=== PATIENT | female | born 1995 | race Two or more races ===

== ENCOUNTER 2017-10-15 09:45 | Emergency (ER) | payer OTHER ==
[~2017-10-15] VITALS: Ht 152.4 cm; Wt 63.5 kg
== END 2017-10-15 13:28 | disposition home or self-care (01) ==
LOC: ER 09:45
DX: J06.9 Acute upper respiratory infection, unspecified (principal)

== ENCOUNTER 2018-04-06 11:36 | Emergency (ER) | payer OTHER ==
[~2018-04-06] VITALS: Ht 152.4 cm; Wt 59.0 kg
== END 2018-04-06 13:40 | disposition home or self-care (01) ==
LOC: ER 11:36
DX: S80.02XA Contusion of left knee, initial encounter (principal); S90.02XA Contusion of left ankle, initial encounter; W18.39XA Other fall on same level, initial encounter; Y93.89 Activity, other specified; Y92.488 Other paved roadways as the place of occurrence of the external cause; Y99.8 Other external cause status

== ENCOUNTER 2018-10-14 12:38 | Emergency (ER) | payer OTHER ==
[~2018-10-14] VITALS: Ht 152.4 cm; Wt 63.5 kg
[2018-10-14] MEDS ORDERED: ZITHROMAX500 MG PO (16:02)
[2018-10-14] MEDS ORDERED: TUSSI PRES-B L480 ML PO (16:02)
== END 2018-10-14 16:04 | disposition home or self-care (01) ==
LOC: ER 12:38
DX: B34.9 Viral infection, unspecified (principal)

== ENCOUNTER 2019-01-04 16:50 | Emergency (ER) | payer OTHER ==
[~2019-01-04] VITALS: Ht 152.4 cm; Wt 54.4 kg
[~2019-01-04 16:50] MED LIST: TUSSI PRES-B L480 ML PO; ZITHROMAX500 MG PO
== END 2019-01-04 21:21 | disposition home or self-care (01) ==
LOC: ER 16:50
DX: N30.80 Other cystitis without hematuria (principal)

== ENCOUNTER 2021-01-31 02:18 | Emergency (ER) | payer OTHER ==
[~2021-01-31] VITALS: Ht 152.4 cm; Wt 68.0 kg
== END 2021-01-31 04:11 | disposition home or self-care (01) ==
LOC: ER 02:18
DX: R07.89 Other chest pain (principal)

== ENCOUNTER 2021-03-09 20:42 | Emergency (ER) | payer OTHER ==
[~2021-03-09] VITALS: Ht 152.4 cm; Wt 68.0 kg
== END 2021-03-09 23:29 | disposition home or self-care (01) ==
LOC: ER 20:42
DX: J06.9 Acute upper respiratory infection, unspecified (principal); Z11.52 Encounter for screening for COVID-19

== ENCOUNTER 2022-02-01 07:27 | Emergency (ER) | payer OTHER ==
[~2022-02-01] VITALS: Ht 149.9 cm; Wt 61.2 kg
== END 2022-02-01 12:07 | disposition home or self-care (01) ==
LOC: ER 07:27
DX: J06.9 Acute upper respiratory infection, unspecified (principal); Z20.828 Contact with and (suspected) exposure to other viral communicable diseases

== ENCOUNTER 2022-02-23 15:25 | Emergency (ER) | payer OTHER ==
[~2022-02-23] VITALS: Ht 149.9 cm; Wt 61.2 kg
== END 2022-02-23 17:40 | disposition home or self-care (01) ==
LOC: ER 15:25
DX: J06.9 Acute upper respiratory infection, unspecified (principal); Z20.822 Contact with and (suspected) exposure to COVID-19

== ENCOUNTER 2022-12-27 17:55 | Emergency (ER) | payer OTHER ==
[~2022-12-27] VITALS: Ht 149.9 cm; Wt 77.1 kg
[2022-12-27 19:23] LABS: HEMATOCRIT 39.4 % (36.0-45.00); HEMOGLOBIN 13.6 g/dL (12.0-15.00); MEAN CELL VOLUME 84.5 fL (80.00-100.00); MEAN CORPUSCULAR HEMOGLOBIN 29.2 pg (27.00-32.0); MEAN CORPUSCULAR HGB CONC 34.6 g/dl (32.0-36.0); PLATELET COUNT 219 K/uL (150-450); RED BLOOD COUNT 4.66 M/uL (4.00-6.00); RED CELL DISTRIBUTION WIDTH 12.9 % (11.5-14.5)
== END 2022-12-27 21:04 | disposition home or self-care (01) ==
LOC: ER 17:55
PROVIDERS: General Practice
DX: R53.81 Other malaise (principal); R05.9 Cough, unspecified; Z20.822 Contact with and (suspected) exposure to COVID-19

== ENCOUNTER 2023-04-03 18:06 | Emergency (ER) | payer OTHER ==
[~2023-04-03] VITALS: Ht 152.4 cm; Wt 79.6 kg
[~2023-04-03 18:06] MED LIST changes: +ALBUTEROL2.5 MG/3 M IH; +AZITHROMYCIN500 MG PO; +FLOVENT HFA12 GM
[2023-04-03] MEDS ORDERED: FOLIC ACID20 MG PO (18:46)
[2023-04-03 22:16] LABS: HEMATOCRIT 38.2 % (36.0-45.00); HEMOGLOBIN 13.5 g/dL (12.0-15.00); MEAN CELL VOLUME 86.5 fL (80.00-100.00); MEAN CORPUSCULAR HEMOGLOBIN 30.5 pg (27.00-32.0); MEAN CORPUSCULAR HGB CONC 35.2 g/dl (32.0-36.0); PLATELET COUNT 209 K/uL (150-450); RED BLOOD COUNT 4.42 M/uL (4.00-6.00); RED CELL DISTRIBUTION WIDTH 13.4 % (11.5-14.5)
[2023-04-03 22:18] LABS: URINE APPEARANCE Turbid; URINE BILIRRUBIN Small (NEGATIVE); URINE BLOOD Large; URINE COLOR Red; URINE GLUCOSE Negative (NEGATIVE); URINE LEUKOCYTE Small; URINE NITRATE Negative
[2023-04-03 22:21] LABS: URINE BACTERIA 3803.8 uL (0.0-1933); URINE EPITHELIAL CELLS 69.1 uL (0.0-38.8); URINE WBC 73.5 uL (0.0-23.2)
[2023-04-03 22:33] LABS: URINE PROTEIN 100 (NEGATIVE); URINE RBC > 10558.9 uL (0.0-20.8)
[2023-04-03 22:34] LABS: URINE MUCUS MODERATE
[2023-04-03 23:03] LABS: CALCIUM 9.3 mg/dL (8.5-10.1); CREATININE SERUM 0.71 mg/dL (0.55-1.02); GFR 98.75; POTASSIUM 3.47 mEq/L (3.5-5.1)
== END 2023-04-04 02:19 | disposition home or self-care (01) ==
LOC: ER 18:07
PROVIDERS: Emergency Medicine
DX: O20.9 Hemorrhage in early pregnancy, unspecified (principal); Z3A.01 Less than 8 weeks gestation of pregnancy; Z87.09 Personal history of other diseases of the respiratory system

== ENCOUNTER 2023-09-11 11:40 | Outpatient (CLI) | payer OTHER ==
[~2023-09-11 11:40] MED LIST changes: +CLARITIN10 M1; +FOLIC ACID20 MG PO; +ONDANSETRON ODT8 MG PO; +PEPCID AC20 MG PO
[2023-09-11] MEDS ORDERED: RINGERS SOLUTION,LACTATED 1,000 ML IV SCH (12:45)
[2023-09-11 12:59] LABS: PH,URINE 6.5 (5.0-8.0); URINE BILIRRUBIN Negative (NEGATIVE); URINE BLOOD Negative; URINE COLOR Yellow; URINE GLUCOSE Negative (NEGATIVE); URINE LEUKOCYTE Moderate; URINE NITRATE Negative; URINE PROTEIN Negative (NEGATIVE); URINE UROBILINOGEN 0.2 E.U./dl
[2023-09-11 13:00] LABS: URINE BACTERIA 3356.5 uL (0.0-1933); URINE EPITHELIAL CELLS 67.5 uL (0.0-38.8); URINE RBC 4.1 uL (0.0-20.8); URINE WBC 117.6 uL (0.0-23.2)
[2023-09-11 13:06] LABS: HEMATOCRIT 31.9 % (36.0-45.00); HEMOGLOBIN 11.1 g/dL (12.0-15.00); MEAN CORPUSCULAR HEMOGLOBIN 29.9 pg (27.00-32.0); MEAN CORPUSCULAR HGB CONC 34.8 g/dl (32.0-36.0); PLATELET COUNT 183 K/uL (150-450); RED CELL DISTRIBUTION WIDTH 14.2 % (11.5-14.5); URINE APPEARANCE CLEAR
[2023-09-11] MEDS ORDERED: hydrOXYzine PAMOATE 25 MG CAPSULE PO SCH (17:00)
== END 2023-09-12 10:09 | disposition home or self-care (01) ==
LOC: OBS/DEL 11:40
PROVIDERS: ATTEND Obstetrics & Gynecology
DX: O26.893 Other specified pregnancy related conditions, third trimester (principal); Z3A.29 29 weeks gestation of pregnancy

== ENCOUNTER → 2023-10-25 10:01 | Outpatient (CLI) | payer OTHER | END | disposition home or self-care (01) | LOC: NST 10:01 | PROVIDERS: ATTEND Obstetrics & Gynecology | DX: Z34.83 Encounter for supervision of other normal pregnancy, third trimester (principal) ==

== ENCOUNTER 2023-11-04 04:48 | Inpatient (IN) | payer OTHER ==
[~2023-11-04] VITALS: Ht 152.4 cm; Wt 2.7 kg
[2023-11-04] MEDS ORDERED: PRENATAL TABLE1 EAC1 PO (05:12)
[2023-11-04] MEDS ORDERED: RINGERS SOLUTION,LACTATED 1,000 ML IV SCH (05:15)
[2023-11-04 06:28] LABS: HEMATOCRIT 34.3 % (36.0-45.00); HEMOGLOBIN 11.6 g/dL (12.0-15.00); MEAN CELL VOLUME 84.9 fL (80.00-100.00); MEAN CORPUSCULAR HEMOGLOBIN 28.8 pg (27.00-32.0); PLATELET COUNT 190 K/uL (150-450); RED BLOOD COUNT 4.03 M/uL (4.00-6.00); RED CELL DISTRIBUTION WIDTH 16.3 % (11.5-14.5)
[2023-11-04 06:39] LABS: INR < 0.93; PARTIAL THROMBOPLASTIN TIME 25.3 SECONDS (22.0-34.0); PROTHROMBIN TIME 10.2 SECONDS (9.0-11.5)
[2023-11-04 06:42] LABS: ALBUMIN 2.7 gm/dL (3.4-5.0); BILIRUBIN TOTAL 0.22 mg/dL (0.3-1.2); CALCIUM 8.6 mg/dL (8.5-10.1); CREATININE SERUM 0.45 mg/dL (0.55-1.02); GFR 167.13; GLOBULINA 3.3 G/DL (2.4-3.5); POTASSIUM 3.97 mEq/L (3.5-5.1)
[2023-11-04] MEDS ORDERED: OXYTOCIN 1,000 ML IV ONE (08:00)
[2023-11-04] MEDS ORDERED: OXYTOCIN 20 UNITS/500ML RL PIGGYBAG IV ONE (08:04)
[2023-11-04] MEDS ORDERED: MORPHINE SULFATE 4 MG/ML VIAL IV STA (12:15)
[2023-11-04] MEDS ORDERED: MISOPROSTOL 100 MCG TABLET VAG SCH (12:45)
[2023-11-04] MEDS ORDERED: MISOPROSTOL 100 MCG TABLET PO NR (13:51)
[2023-11-04] MEDS ORDERED: OXYTOCIN 10 UNITS/ML VIAL ONE (16:06)
[2023-11-04] MEDS ORDERED: ERYTHROMYCIN BASE 1 GM TUBE OP ONE (16:06)
[2023-11-04] MEDS ORDERED: CEFAZOLIN SODIUM 1,000 MG VIAL ONE (16:16)
[2023-11-04] MEDS ORDERED: CITRIC ACID/SODIUM CITRATE 30 ML BLIST.PACK PO SCH (16:45)
[2023-11-04] MEDS ORDERED: CEFAZOLIN SODIUM 1,000 MG VIAL IV SCH (16:45)
[2023-11-04] MEDS ORDERED: MEPERIDINE HCL/PF 50 MG/ML VIAL IM PRN (18:00)
[2023-11-04] MEDS ORDERED: OXYTOCIN 1,000 ML IV SCH (18:00)
[2023-11-04] MEDS ORDERED: IBUprofen 400 MG TABLET PO PRN (18:00)
[2023-11-05] MEDS ORDERED: OXYTOCIN 10 UNITS/ML VIAL ONE (00:30)
[2023-11-05] MEDS ORDERED: OxyCODONE HCL/APAP UD (PERCOCET) PO PRN (08:30)
[2023-11-05 11:09] LABS: HEMATOCRIT 31.6 % (36.0-45.00); HEMOGLOBIN 10.9 g/dL (12.0-15.00); MEAN CELL VOLUME 83.9 fL (80.00-100.00); MEAN CORPUSCULAR HEMOGLOBIN 28.9 pg (27.00-32.0); MEAN CORPUSCULAR HGB CONC 34.5 g/dl (32.0-36.0); PLATELET COUNT 158 K/uL (150-450); RED BLOOD COUNT 3.76 M/uL (4.00-6.00); RED CELL DISTRIBUTION WIDTH 16.7 % (11.5-14.5)
== END 2023-11-07 11:27 | disposition home or self-care (01) | DRG 786 ==
LOC: LDR 04:48 → OB/GYN 04:48 → LDR 05:04 → O/R 16:50 → OB/GYN 19:54
PROVIDERS: Obstetrics & Gynecology; ADMIT Obstetrics & Gynecology Maternal & Fetal Medicine; ATTEND Obstetrics & Gynecology Maternal & Fetal Medicine
PROC: 4A1HXCZ Monitoring of Products of Conception, Cardiac Rate, External Approach (ICD-10-PCS; 2023-11-04)
PROC: 3E033VJ Introduction of Other Hormone into Peripheral Vein, Percutaneous Approach (ICD-10-PCS; 2023-11-04)
PROC: 3E0P7VZ Introduction of Hormone into Female Reproductive, Via Natural or Artificial Opening (ICD-10-PCS; 2023-11-04)
PROC: 10D00Z1 Extraction of Products of Conception, Low, Open Approach (ICD-10-PCS; principal; 2023-11-04 16:00)
DX: O33.8 Maternal care for disproportion of other origin (principal); O60.14X0 Preterm labor third trimester with preterm delivery third trimester, not applicable or unspecified; O62.0 Primary inadequate contractions; Z3A.36 36 weeks gestation of pregnancy; Z37.0 Single live birth; Z20.822 Contact with and (suspected) exposure to COVID-19

== ENCOUNTER 2023-11-19 19:45 | Inpatient (IN) | payer OTHER ==
[~2023-11-19] VITALS: Ht 152.4 cm; Wt 81.6 kg
[~2023-11-19 19:45] MED LIST changes: +PRENATAL TABLE1 EAC1 PO
[2023-11-19] MEDS ORDERED: ACETAMINOPHEN 500 MG GEL..CAP PO ONE (20:03)
[2023-11-19] MEDS ORDERED: 0.9 % SODIUM CHLORIDE 1,000 ML IV ONE (20:45)
[2023-11-19] MEDS ORDERED: CEFTRIAXONE SODIUM 1,000 MG VIAL IV ONE (20:45)
[2023-11-19] MEDS ORDERED: FAMOtidine 10 MG/ML (4ML VIAL) IV ONE (20:45)
[2023-11-19] MEDS ORDERED: MEPERIDINE HCL/PF 50 MG/ML VIAL IV ONE (20:45)
[2023-11-19] MEDS ORDERED: CEFTRIAXONE SODIUM 1,000 MG VIAL ONE (20:54)
[2023-11-19] MEDS ORDERED: FAMOTIDINE/PF 20 MG/2 ML VIAL ONE (20:55)
[2023-11-19 21:26] LABS: HEMOGLOBIN 11.1 g/dL (12.0-15.00); MEAN CELL VOLUME 82.4 fL (80.00-100.00); MEAN CORPUSCULAR HEMOGLOBIN 27.8 pg (27.00-32.0); MEAN CORPUSCULAR HGB CONC 33.7 g/dl (32.0-36.0); PLATELET COUNT 208 K/uL (150-450); RED BLOOD COUNT 4.01 M/uL (4.00-6.00); RED CELL DISTRIBUTION WIDTH 15.9 % (11.5-14.5)
[2023-11-19 21:30] LABS: URINE APPEARANCE Clear; URINE BILIRRUBIN Negative (NEGATIVE); URINE BLOOD Large; URINE COLOR Yellow; URINE GLUCOSE Negative (NEGATIVE); URINE KETONE 15 (NEGATIVE); URINE LEUKOCYTE Moderate; URINE NITRATE Negative; URINE PROTEIN 30 (NEGATIVE)
[2023-11-19 21:33] LABS: URINE BACTERIA 3093.1 uL (0.0-1933); URINE EPITHELIAL CELLS 28.5 uL (0.0-38.8); URINE RBC 355.4 uL (0.0-20.8)
[2023-11-19 21:35] LABS: ERYTHROCYTE SEDIMENTATION RATE 79 mm/hr
[2023-11-19 21:44] LABS: INR 1.14; PROTHROMBIN TIME 12.3 SECONDS (9.0-11.5)
[2023-11-19 21:55] LABS: ALBUMIN 2.9 gm/dL (3.4-5.0); BILIRUBIN TOTAL 0.41 mg/dL (0.3-1.2); CREATININE SERUM 0.61 mg/dL (0.55-1.02); GFR 117.65; GLOBULINA 4.3 G/DL (2.4-3.5); POTASSIUM 3.34 mEq/L (3.5-5.1); TOTAL PROTEIN 7.2 gm/dL (6.4-8.2)
[2023-11-19 21:59] LABS: C-REACTIVE PROTEIN 11.6 MG/DL (0.00-0.29)
[2023-11-19 22:04] LABS: URINE CAST 0.15 uL (0.0-1.40); URINE MUCUS MODERATE
[2023-11-19 22:05] LABS: URINE CRYSTALS FEW /HPF
[2023-11-20] MEDS ORDERED: ENOXAPARIN SODIUM 40 MG/0.4 ML SYRINGE SUBCUTANEO SCH (00:39)
[2023-11-20] MEDS ORDERED: ENOXAPARIN SODIUM 40 MG/0.4 ML SYRINGE SUBCUTANEO ONE ×2 (00:45→09:18)
[2023-11-20 01:31] LABS: D DIMER 13.6 MG/L
[2023-11-20] MEDS ORDERED: MEPERIDINE HCL/PF 50 MG/ML VIAL IM STA (04:19)
[2023-11-20] MEDS ORDERED: ACETAMINOPHEN 500 MG GEL..CAP PO ONE ×2 (04:32→04:45)
[2023-11-20] MEDS ORDERED: ENOXAPARIN SODIUM 80 MG/0.8 ML SYRINGE SUBCUTANEO ONE ×2 (10:15→10:16)
[2023-11-20] MEDS ORDERED: PANTOPRAZOLE SODIUM 40 MG/VIAL VIAL IV SCH (12:35)
[2023-11-20] MEDS ORDERED: ENOXAPARIN SODIUM 80 MG/0.8 ML SYRINGE SUBCUTANEO SCH (12:36)
[2023-11-20] MEDS ORDERED: ACETAMINOPHEN 500 MG GEL..CAP PO PRN (12:45)
[2023-11-20] MEDS ORDERED: 0.9 % SODIUM CHLORIDE 1,000 ML IV SCH (13:00)
[2023-11-20] MEDS ORDERED: PIPERACILLIN/TAZOBACTAM SODIUM 3.375 GM VIAL IV ONE (13:42)
[2023-11-20] MEDS ORDERED: PIPERACILLIN/TAZOBACTAM SODIUM 3.375 GM in 0.9 % SODIUM CHLORIDE 100 ML IV SCH (14:00)
[2023-11-20] MEDS ORDERED: MORPHINE SULFATE 4 MG/ML VIAL IV SCH (14:00)
[2023-11-20 14:22] LABS: HEMATOCRIT 34.6 % (36.0-45.00); HEMOGLOBIN 11.6 g/dL (12.0-15.00); MEAN CELL VOLUME 82.5 fL (80.00-100.00); MEAN CORPUSCULAR HEMOGLOBIN 27.6 pg (27.00-32.0); MEAN CORPUSCULAR HGB CONC 33.4 g/dl (32.0-36.0); PLATELET COUNT 204 K/uL (150-450); RED BLOOD COUNT 4.19 M/uL (4.00-6.00); RED CELL DISTRIBUTION WIDTH 16.3 % (11.5-14.5)
[2023-11-20 14:50] LABS: INR 1.19; PROTHROMBIN TIME 12.8 SECONDS (9.0-11.5)
[2023-11-20 14:58] LABS: ALBUMIN 2.9 gm/dL (3.4-5.0); BILIRUBIN TOTAL 0.45 mg/dL (0.3-1.2); CALCIUM 9.2 mg/dL (8.5-10.1); CREATININE SERUM 0.62 mg/dL (0.55-1.02); GFR 115.46; GLOBULINA 4.6 G/DL (2.4-3.5); POTASSIUM 3.37 mEq/L (3.5-5.1); TOTAL PROTEIN 7.5 gm/dL (6.4-8.2)
[2023-11-20 15:01] LABS: C-REACTIVE PROTEIN 18.3 MG/DL (0.00-0.29)
[2023-11-20 15:13] LABS: PH,URINE 6.5 (5.0-8.0); URINE APPEARANCE Clear; URINE BILIRRUBIN Negative (NEGATIVE); URINE BLOOD Moderate; URINE COLOR Yellow; URINE GLUCOSE Negative (NEGATIVE); URINE KETONE 15 (NEGATIVE); URINE LEUKOCYTE Negative; URINE NITRATE Negative; URINE PROTEIN 30 (NEGATIVE)
[2023-11-20 15:14] LABS: URINE BACTERIA 251.9 uL (0.0-1933); URINE EPITHELIAL CELLS 11.5 uL (0.0-38.8); URINE RBC 51.6 uL (0.0-20.8); URINE WBC 5.2 uL (0.0-23.2)
[2023-11-20 17:49] VITALS: BP 123/79; O2SAT 98
[2023-11-20] MEDS ORDERED: MORPHINE SULFATE 4 MG/ML CARTRIDGE IV SCH (20:00)
[2023-11-21 02:00] VITALS: BP 120/83
[2023-11-21 09:28] VITALS: BP 119/87
[2023-11-21] MEDS ORDERED: POTASSIUM CHLORIDE 20MEQ/100ML H2O PB IV NR (14:15)
[2023-11-21 18:30] VITALS: BP 129/73
[2023-11-21 18:33] VITALS: BP 128/73
[2023-11-21 19:15] VITALS: BP 127/84
[2023-11-22 01:00] VITALS: BP 120/77
[2023-11-22 10:13] LABS: CALCIUM 8.8 mg/dL (8.5-10.1); CREATININE SERUM 0.57 mg/dL (0.55-1.02); GFR 127.23; POTASSIUM 3.9 mEq/L (3.5-5.1)
[2023-11-22 10:55] VITALS: BP 119/77
[2023-11-22] MEDS ORDERED: APIXABAN 5 MG TABLET PO SCH (13:37)
[2023-11-22] MEDS ORDERED: SOD FERRIC GLUC COMPLX/SUCROSE 62.5 MG/5 ML AMPUL IV SCH (17:00)
[2023-11-22] MEDS ORDERED: Cyanocobalamin/Mecobalamin 1 TAB.SL SL SCH (17:00)
[2023-11-22] MEDS ORDERED: VITAMIN B COMPLEX 1 EACH PO SCH (17:00)
[2023-11-22 17:34] VITALS: BP 119/65
[2023-11-23 02:00] VITALS: BP 135/89
[2023-11-23 08:58] VITALS: BP 120/83
[2023-11-23] MEDS ORDERED: ELIQUIS5 MG PO (10:09)
== END 2023-11-23 11:41 | disposition home or self-care (01) | DRG 395 ==
LOC: ER 19:46 → SEC-K 11-20 13:06 → MEDJ 11-20 13:06
PROVIDERS: General Practice; ADMIT Internal Medicine; ATTEND Internal Medicine
PROC: BW21YZZ Computerized Tomography (CT Scan) of Abdomen and Pelvis using Other Contrast (ICD-10-PCS; principal; 2023-11-19)
DX: K55.059 Acute (reversible) ischemia of intestine, part and extent unspecified (principal); D64.9 Anemia, unspecified

== ENCOUNTER 2024-02-21 13:09 | Emergency (ER) | payer OTHER ==
[~2024-02-21] VITALS: Ht 152.4 cm; Wt 77.1 kg
[~2024-02-21 13:09] MED LIST changes: +ELIQUIS5 MG PO
[2024-02-21] MEDS ORDERED: FAMOTIDINE/PF 20 MG/2 ML VIAL IV ONE (15:15)
[2024-02-21] MEDS ORDERED: 0.9 % SODIUM CHLORIDE 500 ML IV ONE (15:15)
[2024-02-21] MEDS ORDERED: LACTOBACILLUS ACIDOPHILUS 1 CAP CAP PO ONE (15:15)
[2024-02-21 15:43] LABS: HEMATOCRIT 37.7 % (36.0-45.00); HEMOGLOBIN 13.1 g/dL (12.0-15.00); MEAN CELL VOLUME 83.4 fL (80.00-100.00); MEAN CORPUSCULAR HGB CONC 34.8 g/dl (32.0-36.0); PLATELET COUNT 216 K/uL (150-450); RED BLOOD COUNT 4.52 M/uL (4.00-6.00); RED CELL DISTRIBUTION WIDTH 13.5 % (11.5-14.5)
[2024-02-21 15:58] LABS: PH,URINE 6.5 (5.0-8.0); URINE APPEARANCE Clear; URINE BILIRRUBIN Negative (NEGATIVE); URINE BLOOD Negative; URINE COLOR Yellow; URINE GLUCOSE Negative (NEGATIVE); URINE KETONE Negative (NEGATIVE); URINE LEUKOCYTE Negative; URINE NITRATE Negative; URINE PROTEIN Negative (NEGATIVE)
[2024-02-21 16:02] LABS: URINE BACTERIA 801.5 uL (0.0-1933); URINE EPITHELIAL CELLS 53.3 uL (0.0-38.8); URINE RBC 3.2 uL (0.0-20.8); URINE WBC 8.8 uL (0.0-23.2)
[2024-02-21 16:16] LABS: PARTIAL THROMBOPLASTIN TIME 28.2 SECONDS (22.0-34.0); PROTHROMBIN TIME 10.9 SECONDS (9.0-11.5)
[2024-02-21 16:26] LABS: ALBUMIN 3.6 gm/dL (3.4-5.0); BILIRUBIN TOTAL 0.26 mg/dL (0.3-1.2); CREATININE SERUM 0.72 mg/dL (0.55-1.02); GFR 97.17; GLOBULINA 3.6 G/DL (2.4-3.5); POTASSIUM 3.94 mEq/L (3.5-5.1); TOTAL PROTEIN 7.2 gm/dL (6.4-8.2)
[2024-02-21] MEDS ORDERED: INTESTINEX680 M1 PO (20:03)
== END 2024-02-21 20:41 | disposition home or self-care (01) ==
LOC: ER 13:11
PROVIDERS: Nurse Practitioner Family
DX: R10.9 Unspecified abdominal pain (principal)
CPT/HCPCS: 36415; 74177; Q9965

== ENCOUNTER 2024-03-30 15:25 | Outpatient (CLI) | payer OTHER ==
[~2024-03-30 15:25] MED LIST changes: +INTESTINEX680 M1 PO
== END 2024-03-30 15:36 | disposition home or self-care (01) ==
LOC: RAD 15:25
PROVIDERS: ATTEND Internal Medicine Hematology & Oncology
DX: K55.1 Chronic vascular disorders of intestine (principal); G43.009 Migraine without aura, not intractable, without status migrainosus; M54.50 Low back pain, unspecified; M54.6 Pain in thoracic spine; G44.219 Episodic tension-type headache, not intractable
CPT/HCPCS: 70551; 72148

== ENCOUNTER 2024-05-07 19:54 | Emergency (ER) | payer OTHER ==
[~2024-05-07] VITALS: Ht 152.4 cm; Wt 79.4 kg
[2024-05-07] MEDS ORDERED: ACETAMINOPHEN 500 MG GEL..CAP PO ONE (21:29)
[2024-05-08 01:07] LABS: HEMATOCRIT 36.4 % (36.0-45.00); HEMOGLOBIN 12.8 g/dL (12.0-15.00); MEAN CELL VOLUME 83.4 fL (80.00-100.00); MEAN CORPUSCULAR HEMOGLOBIN 29.4 pg (27.00-32.0); MEAN CORPUSCULAR HGB CONC 35.2 g/dl (32.0-36.0); PLATELET COUNT 170 K/uL (150-450); RED BLOOD COUNT 4.36 M/uL (4.00-6.00); RED CELL DISTRIBUTION WIDTH 13.9 % (11.5-14.5)
== END 2024-05-08 03:08 | disposition home or self-care (01) ==
LOC: ER 19:57
PROVIDERS: Preventive Medicine Public Health & General Preventive Medicine
DX: R53.81 Other malaise (principal); Z20.822 Contact with and (suspected) exposure to COVID-19

== ENCOUNTER 2024-05-13 09:01 | Outpatient (CLI) | payer OTHER | END 2024-05-13 09:13 | disposition home or self-care (01) | LOC: RAD 09:01 | PROVIDERS: ATTEND General Practice | DX: J20.9 Acute bronchitis, unspecified (principal) ==

== ENCOUNTER 2024-05-27 14:46 | Emergency (ER) | payer OTHER ==
[~2024-05-27] VITALS: Ht 152.4 cm; Wt 79.4 kg
[2024-05-27] MEDS ORDERED: FAMOTIDINE/PF 20 MG in 0.9 % SODIUM CHLORIDE 8 ML IV PUSH STA (16:44)
[2024-05-27] MEDS ORDERED: 0.9 % SODIUM CHLORIDE 1,000 ML IV SCH (16:45)
[2024-05-27] MEDS ORDERED: DIPHENOXYLATE HCL/ATROPINE 1 UDTAB TABLET PO ONE (16:45)
[2024-05-27 17:32] LABS: HEMATOCRIT 39.5 % (36.0-45.00); HEMOGLOBIN 13.4 g/dL (12.0-15.00); MEAN CELL VOLUME 84.7 fL (80.00-100.00); MEAN CORPUSCULAR HEMOGLOBIN 28.8 pg (27.00-32.0); MEAN CORPUSCULAR HGB CONC 34.1 g/dl (32.0-36.0); PLATELET COUNT 202 K/uL (150-450); RED BLOOD COUNT 4.66 M/uL (4.00-6.00); RED CELL DISTRIBUTION WIDTH 13.7 % (11.5-14.5)
[2024-05-27 18:03] LABS: INR 0.97; PARTIAL THROMBOPLASTIN TIME 28.4 SECONDS (22.0-34.0); PROTHROMBIN TIME 10.6 SECONDS (9.0-11.5)
[2024-05-27 18:17] LABS: ALBUMIN 3.8 gm/dL (3.4-5.0); BILIRUBIN TOTAL 0.28 mg/dL (0.3-1.2); CALCIUM 9.5 mg/dL (8.5-10.1); CREATININE SERUM 0.6 mg/dL (0.55-1.02); GFR 119.04; GLOBULINA 3.9 G/DL (2.4-3.5); POTASSIUM 3.79 mEq/L (3.5-5.1); TOTAL PROTEIN 7.7 gm/dL (6.4-8.2)
[2024-05-27] MEDS ORDERED: INTESTINEX680 M1 PO (20:18)
== END 2024-05-27 20:24 | disposition home or self-care (01) ==
LOC: ER 14:48
PROVIDERS: General Practice
DX: R10.84 Generalized abdominal pain (principal)

== ENCOUNTER 2024-08-24 13:22 | Emergency (ER) | payer OTHER ==
[~2024-08-24] VITALS: Ht 152.4 cm; Wt 79.4 kg
[2024-08-24] MEDS ORDERED: IRON18 M1 PO (14:27)
[2024-08-24] MEDS ORDERED: B COMPLEX1 EAC1 PO (14:28)
[2024-08-24] MEDS ORDERED: CEFTRIAXONE SODIUM 1,000 MG VIAL IM STA (17:28)
[2024-08-24] MEDS ORDERED: ACETAMINOPHEN 500 MG GEL..CAP PO STA (17:29)
[2024-08-24] MEDS ORDERED: ACETAMINOPHEN 500 MG GEL..CAP PO ONE (17:36)
[2024-08-24] MEDS ORDERED: CEFTRIAXONE SODIUM 1,000 MG VIAL ONE (17:36)
== END 2024-08-24 17:52 | disposition home or self-care (01) ==
LOC: ER 13:22
DX: J06.9 Acute upper respiratory infection, unspecified (principal)